=== PATIENT | male | born 1975 | race Caucasian/White ===

== ENCOUNTER 2023-06-09 01:14 | Emergency (ER) | payer OTHER ==
[~2023-06-09] VITALS: Ht 175.3 cm; Wt 72.6 kg
[2023-06-09 01:14] VITALS: BP 142/74; PULSE 74; RESP 16; TEMP 98.2; O2SAT 98
[2023-06-09 01:26] VITALS: BP 142/74; PULSE 74; RESP 16; TEMP 98.3; O2SAT 97
== END 2023-06-09 01:26 ==
LOC: MED 01:14
DX: Z02.89 Encounter for other administrative examinations (principal)
CPT/HCPCS: 99283